=== PATIENT | female | born 1990 | race Caucasian/White ===

== ENCOUNTER 2019-08-21 13:23 | Emergency (ER) | payer SELFPAY ==
[~2019-08-21] VITALS: Ht 172.7 cm; Wt 62.0 kg
[2019-08-21 14:00] LABS: BASO # 0.1 x10^3/uL (0.0-0.2); BASO % 1 % (0-3); EOS % 0 % (0-3); HEMATOCRIT 41.4 % (36.0-47.0); HEMOGLOBIN 14.2 g/dL (12.0-15.5); LYMPH # 1.6 x10^3/uL (1.0-4.8); LYMPH % 14 % (24-48); MEAN CORPUSCULAR HEMOGLOBIN 33 pg (25-35); MEAN CORPUSCULAR HGB CONC 34 g/dL (31-37); MEAN CORPUSCULAR VOLUME 96 fL (79-100); MONO # 0.9 x10^3/uL (0.0-1.1); MONO % 8 % (0-9); NEUT # 8.9 x10^3uL (1.8-7.7); NEUT % 77 % (31-73); PLATELET COUNT 149 x10^3/uL (140-400); RED BLOOD COUNT 4.29 x10^6/uL (3.50-5.40); RED CELL DISTRIBUTION WIDTH 12.4 % (11.5-14.5); WHITE BLOOD COUNT 11.5 x10^3/uL (4.0-11.0)
[2019-08-21] MEDS ORDERED: ONDANSETRON PF 4 MG/2 ML VIAL. IVP ONE (14:00)
[2019-08-21] MEDS ORDERED: IOHEXOL 300 MG/ML 75 ML VIAL. IV ONE (14:00)
[2019-08-21 14:07] LABS: CALCIUM 8.9 mg/dL (8.5-10.1); CREATININE 0.8 mg/dL (0.6-1.0); GFR 86.7; POTASSIUM 3.5 mmol/L (3.5-5.1)
[2019-08-21 14:13] LABS: ALBUMIN 4.2 g/dL (3.4-5.0); ALBUMIN/GLOBULIN RATIO 1.2 (1.0-1.7); TOTAL BILIRUBIN 0.7 mg/dL (0.2-1.0); TOTAL PROTEIN 7.7 g/dL (6.4-8.2)
[2019-08-21 14:21] LABS: PREG TEST PT QUAL NEGATIVE (NEG)
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
[2019-08-21] MEDS ORDERED: DICL50TA4 PO (16:24)
[2019-08-21] MEDS ORDERED: ORPH-16 PO (16:24)
[2019-08-21] MEDS ORDERED: HYDR-3165 PO (16:24)
[2019-08-21 16:25] VITALS: BP 114/68
[2019-08-21] MEDS ORDERED: NEOMY/BACITR/POLYMYXIN OINT PACKET. TP ONE (16:35)
== END 2019-08-21 16:40 | disposition home or self-care (01) ==
LOC: EEVIPCON 13:23 → ER 13:23
DX: S00.83XA Contusion of other part of head, initial encounter (principal); S20.219A Contusion of unspecified front wall of thorax, initial encounter; S20.229A Contusion of unspecified back wall of thorax, initial encounter; S40.011A Contusion of right shoulder, initial encounter; F41.9 Anxiety disorder, unspecified; F31.9 Bipolar disorder, unspecified; Y08.89XA Assault by other specified means, initial encounter; Y93.01 Activity, walking, marching and hiking; Y92.89 Other specified places as the place of occurrence of the external cause; Y99.8 Other external cause status
CPT/HCPCS: 36415; 70450; 70486; 71260; 72125; 73030; 73080; 73090; 74177; 80053; 84703; 85025; 96374; 96375; 99285; G0480; J2405; J3010; Q9967